=== PATIENT | male | born 1955 | race Caucasian/White ===

== ENCOUNTER 2016-10-21 12:45 | Day surgery (SDC) | payer OTHER ==
[~2016-10-21 12:45] MED LIST: ACETAMINOPHEN325 M1 PO; ALLEGRA ALLERG180 MG PO; ALLERCLEAR10 MG PO; ALLOPURINOL100 MG PO; AMOXICILLIN500 MG PO; ASPIR 8181 MG PO; ASPIR-LOW81 MG PO; CIALIS5 MG PO; CIPROFLOXACIN250 MG PO; FEXOFENADINE HC60 MG PO; FINASTERIDE5 MG PO; FLONASE ALLERG9.9 ML NS; HYDROCODON-ACE1 EA11 PO; MELOXICAM15 MG PO; METOPROLOL SUC200 MG PO; METOPROLOL TAR100 MG PO; METOPROLOL TART50 MG PO; METRONIDAZOLE250 MG PO; MIRALAX17 GM PO; MONTELUKAST SOD10 MG PO; MULTI VITAMIN1 EACH PO; OXYCODONE HCL5 MG PO; PANTOPRAZOLE SO40 MG PO; PEPTO-BISMOL262 MG PO; PROTONIX40 MG PO; SUCRALFATE1 GM/10 ML PO; TAMSULOSIN HCL0.4 MG PO; TESTOSTERO200 MG/1 M IM; TRAMADOL HCL50 MG; TRIAMTERENE-HC1 EAC3 PO; VENTOLIN HFA18 GM INH; VITAMIN D2000 UNI1 PO; XARELTO10 MG PO; ZYLOPRIM300 MG PO
[2016-10-21] MEDS ORDERED: ACETAMINOPHEN500 M1 PO (13:14)
--- NOTE | 2016-10-21 14:22 | NUR ---
10/21/16 1422 Kim Delgado REPORT FROM DARCY BANERJEE.
--- NOTE | 2016-10-26 13:10 | OR ---
[facility] [address], [place] [address] Signed DATE OF SERVICE: 10/21/2016 PREOPERATIVE DIAGNOSES: 1. Severe duodenal ulcer, June 2016. 2. Multiple medical problems. 3. History of hip replacement. POSTOPERATIVE DIAGNOSIS: No evidence of duodenal ulcer; possible mild antral gastritis. PROCEDURE: Esophagogastroduodenoscopy with biopsy. ANESTHESIA: Fentanyl 100 mcg, Versed 4 mg. 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 Clifton Fu. He has several medical problems from the past including urinary retention, managed ultimately by Dr. Cesar, urologist in [place] as well as hip replacement therapy by Dr. Harris. He was found on June 17, 2016, to have a sizable duodenal ulcer, which was maria e for severe Upper abdominal pain. He was treated with PPI medication pantoprazole as well As Carafate. Clinically, his symptoms of ulceration have resolved. Heis doing well following a total hip replacement. He ishaving no associated dysphagia. He is admitted at this time to undergo upper endoscopy to prove ulcer healing given the extent of the ulcer previously. He understands the risks of bleeding, infection, and perforation and wished to proceed. FINDINGS: The ulcer has healed. There is no evidence of remnant ulcer. Stomach had mild antral gastritis, but nothing significant. CLOtest was negative. The distal esophagus was reasonably normal. PROCEDURE IN DETAIL:The patient was brought to the endoscopy suite, given topical Hurricaine spray hypopharyngeal anesthesia, and placedin lateral decubitus position. He was given intravenous sedation to the point of slurred speech and nystagmus. Full cardiopulmonary monitoring was maintained. Preprocedure Ancef was given intravenously. A bite block was placed and an Olympus video upper endoscope passed in the hypopharynx. The vocal cords appeared normal. Scope was advanced to the esophagus, throughout its length it was normal. Scope was advanced to the stomach, which is inflated with air. Rugal folds were normal. There was some mild pre-pyloric antral gastritis, but no sign of ulceration or erosion. Scope was easily passed into the duodenum and the second and third portions were normal. The ampulla was identified. The scope was carefully withdrawn through the bulbar Electronically Signed By: CLIFTON GUERRERO MD 10/26/16 1310 PATIENT NAME: GERARDO BELLO OPERATIVE REPORT DATE OF : 53 PHYSICIAN: CLIFTON GUERRERO MD REPORT #: [id number] REPORT IS CONFIDENTIAL AND NOT TO BE RELEASED WITHOUT AUTHORIZATION [facility] [address], [place] [address] Signed duodenum, which was normal without sign of recurrent ulceration.The scope was withdrawn to the antrum, where biopsies were taken from both KVNG and pathologic testing. Retroflex view was undertaken showing reasonably intact flap valve. The scope was withdrawn to the distal esophagus. There was no evidence of Flynn's epithelium, stricture, or neoplasm. Biopsies were obtained. Careful withdrawal of scope showed no other findings of the esophagus. Hewas taken to the recovery room in good condition having suffered no complications. PLAN: Would continue the Protonix for the time being. We will see him back in 4 weeks or so. We will review pathology report at that time. Additional Consideration will be made for his left thyroid mass 4.5 cm in size with apparent involvement of the isthmus for which fine needle aspiration biopsy was not diagnostic. MD UMBERTO Almazan/Mj /[id number] cc: Clifton Madsen [facility] Electronically Signed By: CLIFTON GUERRERO MD 10/26/16 1310 PATIENT NAME: GERARDO BELLO DAIN OPERATIVE REPORT DATE OF : 53 PHYSICIAN: CLIFTON GUERRERO MD REPORT #: [id number] REPORT IS CONFIDENTIAL AND NOT TO BE RELEASED WITHOUT AUTHORIZATION
[2016-12-30] MEDS ORDERED: NEURONTIN100 MG PO (10:32)
[2016-12-30] MEDS ORDERED: ULTRAM50 MG PO (10:33)
[2016-12-30] MEDS ORDERED: OMEGA 3 1,0001 EACH PO (10:34)
[2016-12-30] MEDS ORDERED: CALCIUM500 M1 PO (10:35)
== END 2016-10-21 15:05 | disposition home or self-care (01) ==
LOC: DS 12:45 → OPS 12:45
PROVIDERS: Surgery
PROC: 0DB68ZX Excision of Stomach, Via Natural or Artificial Opening Endoscopic, Diagnostic (ICD-10-PCS; 2016-10-21)
PROC: 0DB38ZX Excision of Lower Esophagus, Via Natural or Artificial Opening Endoscopic, Diagnostic (ICD-10-PCS; principal; 2016-10-21 14:00)
DX: K29.50 Unspecified chronic gastritis without bleeding (principal); I10 Essential (primary) hypertension; K21.9 Gastro-esophageal reflux disease without esophagitis; K62.9 Disease of anus and rectum, unspecified; Z90.49 Acquired absence of other specified parts of digestive tract; Z98.890 Other specified postprocedural states
CPT/HCPCS: 99152; 99153; J0690; J2250; J3010; J7120

== ENCOUNTER 2017-01-06 05:40 | Observation (INO) | payer OTHER ==
[~2017-01-06] VITALS: Ht 188 cm; Wt 133.8 kg
[~2017-01-06 05:40] MED LIST changes: +ACETAMINOPHEN500 M1 PO; +CALCIUM500 M1 PO; +NEURONTIN100 MG PO; +OMEGA 3 1,0001 EACH PO; +ULTRAM50 MG PO
--- NOTE | 2017-01-06 10:44 | NUR ---
01/06/17 Roberto4 Sheryl Gillette 1029-PATIENT ARRIVED TO PACU ON 12L MASK O2 SAT 98% DRESSING CDI TO NECK. TIA DRAIN IN PLACE. SANGUINOUS DRAINAGE. PATIENT REACTIVE OPENS EYES AND FALLS BACK ASLEEP. SR.
--- NOTE | 2017-01-06 12:26 | NUR ---
PT ARRIVED TO ROOM AT 1205. 2L [address] O2 SATS 96%. AGUILAR DRAINING YELLOW URINE. D5LR @ 85 INFUSING. ICE WATER PROVIDED. TOLERATING WELL.
--- NOTE | 2017-01-06 13:14 | NUR ---
PT SITTING AT EDGE OF BED. 2L 02 VIA NC STILL IN PLACE. TOLERATING WATER WELL. ICE TEA AND VANILLA SHAKE ORDERED FOR PATIENT. REFILLED WATER CUP. VSS. PAIN WELL CONTROLLED.
--- NOTE | 2017-01-06 14:05 | NUR ---
ASSISTED WITH PUTTING SCDS BACK ON LEGS. ADJUSTED HOB. CALL BUTTON IN REACH NO OTHER NEEDS AT THIS TIME.
--- NOTE | 2017-01-06 16:00 | NUR ---
patient up ambulating hallway.
--- NOTE | 2017-01-06 16:34 | NUR ---
patient sitting up in chair watching TV. pain at a 4 and would like to wait until its at a 6-7. He states he will call when he is ready for pain medication. gave Patient crackers to eat. call button in reach. no other needs at this time.
--- NOTE | 2017-01-06 17:03 | NUR ---
2L 02 WHEN ASLEEP D/T SLEEP APNEA. ROOM AIR WHEN AWAKE. TIA DRAIN EMPTYING SEROUS DRAINAGE. STERISTRIPS, MEPILEX, OPSITE IN PLACE. EDGES OPEN, BUT MD AWARE. AGUILAR OUT THIS AFTERNOON. AMBULATING WELL. PERCOCET GIVEN X1. D5LR @ 85. NO SWELLING OR BREATHING ISSUES NOTED. TRANSVERSE INCISION ON NECK. INDEPENDENT TO AMBULATE.
--- NOTE | 2017-01-06 18:24 | NUR ---
PATIENT SITTING UP IN CHAIR. STATES HE FEELS BETTER AFTER DINNER AND PAIN MEDICATION. FRESH ICE GIVEN. NO OTHER NEEDS AT THIS TIME. CALL BUTTON IN REACH. IN ROOM.
--- NOTE | 2017-01-06 19:58 | NUR ---
SHIFT REPORT RECIEVED. PATIENT UP IN CHAIR READING NEWSPAPER. DENIES NEEDS AT THIS TIME. CALL LIGHT IN REACH.
--- NOTE | 2017-01-06 21:00 | NUR ---
PATIENT ASSESSMENT COMPLETED AND DOCUMENTED. EVENING MEDS GIVEN PER ORDER. PATIENT REQUESTED PRN PAIN MEDS, WHICH WERE GIVEN TO HIM. PATIENT RATES HIS PAIN AT 7/10 AT HIS INCISION SITE, AND STATES THAT HIS THROAT IS SORE. DRESSING IS INTACT EXCEPT THE LEFT SITE OF THE OB SITE WHICH HAS COME UNSECURE. MD IS AWARE. NO NEW DRAINAGE AT THE INCISION SITE. TIA IS DRAINING DARK RED DRAINAGE. PATIENT ON PULSE OX, 96% ON RA. HOB ELEVATED >[address] IVF INFUSING PER ORDER, SITE WNL. PATIENT DENIES ANY FURTHER NEEDS AT THIS TIME. CALL LIGHT IN REACH.
--- NOTE | 2017-01-07 00:15 | NUR ---
PATIENT REQUESTED PRN TYLENOL, WHICH WAS GIVEN TO HIM. PATIENT REPORTS PAIN FROM ARTHRITIS. STATES PAIN IN THROAT/NECK IS MINIMAL, RATED AT 3/10. PULSE OX O2 95% ON 1L NC. HOB >[address] IVF INFUSING, SITE WNL. NO FURTHER NEEDS AT THIS TIME. CALL LIGHT IN REACH.
--- NOTE | 2017-01-07 03:11 | NUR ---
PATIENT RESTING IN BED. DENIES PAIN AT THIS TIME. IVF INFUSING, SITE WNL. SCDS IN PLACE. PULSE OX O2 96% ON 1L NC. HOB ELEVATED >45 DEGREES. CALL LIGHT IN REACH.
--- NOTE | 2017-01-07 05:08 | NUR ---
PATIENT RESTED WELL THOUGHOUT THE SHIFT. POST OP PAIN CONTROLLED WITH PRN PAIN MEDS X1. PRN TYLENOL GIVEN X1 FOR ARTHRITIS PAIN. IVF INFUSING, SITE WNL. PULSE OX O2>94% ON 1L NC WHILE SLEEPING. DRESSING ON NECK IS CLEAN AND DRY, DRESSING LOSE ON LEFT SIDE. TIA DRAIN DRAINING DARK RED MODERATE AMOUNT. PATIENT SBA WITH AMBULATION. SCDS IN USE. HOB ELEVATED > 45 DEGREES. OUTPUT QS. PATIENT PASSING GAS.
--- NOTE | 2017-01-07 06:21 | NUR ---
PATIENT AWAKE. STATES THAT PAIN IS "NOT TOO BAD", RATED AT A 5/10. PATIENT REQUEST PRN TYLENOL AND TRAMADOL, WHICH WERE GIVEN. HOB ELEVATED >45 DEGREES. DRESSING HAS NO NEW DRAINAGE, DRESSING NO INTACT ON LEFT SIDE, MD AWARE. TIA DRAIN HAS MODERATE DARK RED DRAINAGE. LUNG SOUNDS CLEAR. BOWEL SOUNDS ACTIVE, PATIENT REPORTS PASSING GAS. SCDS IN PLACE. OUTPUT QS. PATIENT IN GOOD SPIRITS, DENIES NEEDS AT THIS TIME. CALL LIGHT IN REACH.
--- NOTE | 2017-01-07 07:40 | NUR ---
PATIENT SITTING UP IN CHAIR. STATES THAT HES ALREADY WASHED UP FOR THE DAY. FRESHENED LINENS. FRESH ICE WATER AND ICE TEA GIVEN. PICKED UP ROOM. NO OTHER NEEDS AT THIS TIME. CALL BUTTON IN REACH.
--- NOTE | 2017-01-07 07:44 | NUR ---
PT SITTING UP IN RECLINER. DRESSING TO ANTERIOR NECK CLEAN, DRY, LOOSE AT LEFT EDGE, NOC RN JEREMY STATED THAT THIS HAS NOT CHANGED, AND THAT DR. GUERRERO SAW DRESSING AND ORDERED NO CHANGES. PT REPORTED 4/10 PAIN, DENIED NEED FOR PAIN MEDICATION. STATED THAT HE ALREADY SHOWERED.
--- NOTE | 2017-01-07 09:22 | NUR ---
PT SITTING UP IN RECLINER. ATE 100% OF BREAKFAST. PT REPORTED THAT IT HURTS WHEN HE SWALLOWS, BUT REPORTS THAT THE PAIN TO HIS THROAT AND NECK IS NOT INTENSE, RATES PAIN 4/10, DENEIES NEED FOR PRN ANALGESIC. PROVIDED PT WITH ICED TEA AND ICE CREAM PER HIS REQUEST. DRESSING UNCHANGED, REMAINS CLEAN AND DRY, WITH LEFT EDGE LOOSE FROM SKIN. FELIX, PHARMACIST IN TO RECONCILE MEDICATIONS WITH PT.
[2017-01-07] MEDS ORDERED: EFUDEX40 GM TOP (09:28)
--- NOTE | 2017-01-07 09:29 | NUR ---
MED REC COMPLETE
--- NOTE | 2017-01-07 09:45 | NUR ---
PATIENT AMBULATING IN HALLWAY.
[2017-01-07] MEDS ORDERED: OXYCODON-ACETA1 EAC2 PO (09:49)
--- NOTE | 2017-01-07 10:39 | NUR ---
IV D/C'D WNL. DISCHARGE INSTRUCTIONS GIVEN TO PT. PT VERBALIZED UNDERSTANDING. FELIX, PHARMACIST IN TO SEE PT FOR NEW MEDICATION EDUCATION.
--- NOTE | 2017-02-13 07:48 | OR ---
[facility] [address], [place] [address] Signed DATE OF PROCEDURE: 01/06/17 PREOPERATIVE DIAGNOSES Symptomatic right thyroid mass 4.5 cm. Obesity. POSTOPERATIVE DIAGNOSES Symptomatic right thyroid mass 4.5 cm. Obesity. 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 PROCEDURE Right thyroid lobectomy with isthmusectomy. (prolonged, complicated, difficult). SURGEON: Clifton Guerrero MD. ANESTHESIA: General endotracheal, Clifton Foley CRNA. DRAIN: 7 mm Andrei. 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 He has been identified as having a palpable mass in the right thyroid lobe. Fine needle aspiration biopsy by me was nondiagnostic and an ultrasound-guided biopsy subsequently done showed follicular cells probably benign. The lesion takes up most of the right thyroid lobe. He has no hoarseness. He was generally asymptomatic, and he was offered right thyroid lobectomy for diagnosis, but declined and a plan for surveillance evaluation with ultrasound a n d physical exam was outlined. Subsequent to that, however, he started having symptoms suggestive of cervical dysphagia. Swallowing of rice and other food tends to "hang up" in the right hypopharynx and he attributes this to the thyroid itself. On that bas i s, he now wishes to undergo right thyroid lobectomy on the basis of his symptoms. He understands the risks of operation including, but not limited to, bleeding, infection, parathyroid loss, recurrent laryngeal nerve or external laryngeal nerve injury, and of course, need for additional treatment should malignancy be found after all. Understanding this, he wished to proceed. Our plan at present is right thyroid lobectomy with isthmusectomy and intraoperative frozen pathology shows malignancy and completion of left thyroid lobectomy. FINDINGS The operation was prolonged and difficult on the basis of broad attachments of the posterior aspect of the thyroid to the trachea as well as very bulky thyroid with Electronically Signed By: CLIFTON GUERRERO MD 02/13/17 0748 PATIENT NAME: GERARDO BELLO OPERATIVE REPORT DATE OF : 53 PHYSICIAN: CLIFTON GUERRERO MD REPORT #: [id number] REPORT IS CONFIDENTIAL AND NOT TO BE RELEASED WITHOUT AUTHORIZATION [facility] [address], [place] [address] Signed nodular changes extending into the tracheoesophageal groove. It is highly probable that this bulky thyroid was in fact causing cervical dysphagia. 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 Superior and inferior parathyroid glands were identified and preserved. The operation lasted 3 times longer than usual of right thyroid lobectomy. A drain was placed as well. DESCRIPTION OF PROCEDURE The patient was brought to the operating room, given a general endotracheal anesthetic. A Napier catheter was placed on the basis of his prior history of urinary retention. Intubation was not as simple though as not particularly difficult for the medical health researcher. A back support was used to assure safe intubation. The patient was placed in a naveed lounge position with a shoulder support and careful extension of the neck but not excessively so. The neck was prepared with a Chlorhexidine solution and draped sterilely. He received preoperative antibiotic Ancef and sequential compression device stockings were used. He had 2 dominant skin creases of the neck, the inferior one was deemed most appropriate for operation. This was marked with a pen, extended from the medial aspect to the sternocleidomastoid muscles. A #15 blade was used to make incision through the dermis. Electrocautery was used for hemostasis. Superior and inferior skin flaps were developed using blunt electrocautery dissection exposing well the strap muscles. Gelpi retractors were placed and the sternohyoid muscle elevated bilaterally and to the avascular plane between them divided with electrocautery. Dissection was carried superiorly and inferiorly, ultimately allowing for identification of the thyroid gland itself on the right side. The strap muscles were elevated and sharply dissected free from the underlying thyroid and retracted laterally. The thyroid was bulky and broad and nodule within the posteriorly quite a bit. The upper pole was blunt and surprisingly elongated. Using meticulous care, the superior gland vessels were individually ligated and divided, subsequently the inferior ones. The lateral attachments were divided though the bulk of the thyroid extending very far posteriorly and to some degree medially into the tracheoesophageal groove was challenging to mobilize. With all due care, sequential security of tethering vessels and connective tissue was ligated and divided. On those larger vessels, small clips were applied. Some parenchymal disruption of the nodule itself was noted. A portion of that nodule was sent for pathology to assess for malignancy. With further care, ultimately the thyroid could be more fully mobilized to the midline maintaining the posterior elements with the deep soft tissue. The superior and inferior parathyroid glands were identified. Clips were applied to multiple branches of vessels in the posterior aspect of the thyroid so as to minimize cautery and the awkwardness of 4-0 silk ties, though multiple such ties were placed in fact. Ultimately, the posterior capsular thyroid could be from the trachea. A rather broad ligament of Oswald was noted. This was freed sharply and thyroid reflected more to the midline, maintaining the avascular plane Electronically Signed By: CLIFTON GUERRERO MD 02/13/17 0748 PATIENT NAME: YESKE,GERARDO GAUTAM OPERATIVE REPORT DATE OF : 53 PHYSICIAN: CLIFTON GUERRERO MD REPORT #: [id number] REPORT IS CONFIDENTIAL AND NOT TO BE RELEASED WITHOUT AUTHORIZATION [facility] [address], [place] [address] Signed in the pretracheal space. The isthmus connecting the right lobe to the left was rather s h ort, but was secured with a hemostat and parenchymal division undertaken with electrocautery. Photographs were taken of the specimen. Irrigation was undertaken in the soft tissue in the paratracheal space and the area was packed with some gauze. Frozen pathology of the previously sent thyroid nodule portion as well as the thyroid bulk itself was undertaken by Dr. Genesis Sandy. This showed a benign follicular lesion, so far as could be told, though final pathology obviously is pending. Irrigation was under taken further in the tracheoesophageal groove area mindful about position of the right recurrent laryngeal nerve. Small clips were applied to the areas of bleeding. Thrombin-soaked Gelfoam was applied to this area as well as well as some Kirti. Though he did not have any sign of ongoing bleeding, a drain was deemed most appropriate given the bulk of his neck, the extent of operation, and so on. This was placed through the midportion of the incision and tucked into the right peritracheal space. The strap muscles were reapproximated at the midline using interrupted 2-0 Vicryl suture. The platysmal layer was similarly reapproximated and the skin closed with interrupted 4-0 Vicryl. Steri-Strips were applied to the wound. Drains attached to the skin with nylon suture and attached to bulb suction. Frozen pathology complete, reports continue to show benign follicular lesion. A Mepilex silver sponge dressing and an OpSite was applied to the wound. The patient was carefully extubated and transferred to recovery room in good condition. The operation was prolonged, complicated, and difficult, lasting 3 times longer than usual, extending from approximately 7:30 a.m. to 10:30 a.m. MD UMBERTO Almazan/Mj /[id number] cc: Chuck Fu MD Electronically Signed By: CLIFTON GUERRERO MD 02/13/17 0748 PATIENT NAME: GERARDO BELLO OPERATIVE REPORT DATE OF : 53 PHYSICIAN: CLIFTON GUERRERO MD REPORT #: [id number] REPORT IS CONFIDENTIAL AND NOT TO BE RELEASED WITHOUT AUTHORIZATION
== END 2017-01-07 12:05 | disposition home or self-care (01) ==
LOC: DS 05:40 → MS 11:40
PROVIDERS: ADMIT Surgery
PROC: 0GTH0ZZ Resection of Right Thyroid Gland Lobe, Open Approach (ICD-10-PCS; principal; 2017-01-06 06:45)
DX: E04.2 Nontoxic multinodular goiter (principal); E66.9 Obesity, unspecified; G47.33 Obstructive sleep apnea (adult) (pediatric); I10 Essential (primary) hypertension; Z79.01 Long term (current) use of anticoagulants; Z79.891 Long term (current) use of opiate analgesic; Z68.37 Body mass index [BMI] 37.0-37.9, adult; Z79.899 Other long term (current) drug therapy
CPT/HCPCS: 00320; 96360; 96361; G0378; J0330; J0690; J1100; J1720; J1885; J2250; J2405; J2704; J2710; J2765; J3010; J3590; J7120

== ENCOUNTER 2021-01-25 06:30 | Day surgery (SDC) | payer MEDICARE, BC ==
[~2021-01-25] VITALS: Ht 188 cm; Wt 150.9 kg
[~2021-01-25 06:30] MED LIST changes: +CYMBALTA60 MG PO; +EFUDEX40 GM TOP; +LISINOPRIL20 MG PO; +OXYCODON-ACETA1 EAC2 PO
[2021-01-25] MEDS ORDERED: CLARITIN10 M2 PO (06:58)
[2021-01-25] MEDS ORDERED: LEVOTHYROXINE112 MC1 PO (06:59)
[2021-01-25] MEDS ORDERED: HYDROCODON-ACE1 EA10 PO (08:55)
--- NOTE | 2021-01-25 08:58 | NUR ---
01/25/21 0858 Kika,Lamar 9009 PT ARRIVED TO PACU ON RA, PT WAKES AND REPORTS PAIN 04/22. VSS. PT DNEIES NAUSEA.
--- NOTE | 2021-01-25 10:05 | NUR ---
PT ALERT, ORIENTED AND PREPARED FOR TODAY. HE JOKED THAT IF IT WAS HIS OTHER HAND HE MIGHT TRY AND DO IT HIMSELF! ALL QUESTIONS ASKED ANSWERED, PT ASKED FOR PRAYER.CONNECTED WITH HIS EAMON, WAITING TO TAKE PT HOME AFTER DC GAVE BLESSING AND COMFORT, WILL FOLLOW NEEDED
--- NOTE | 2021-01-28 08:26 | OR ---
[facility] [address] [employer] [place], [place] [address] Signed DATE OF OPERATION: 01/25/2021 SURGEON: Amarjit Harris MD PREOPERATIVE DIAGNOSES: 1. Carpal tunnel syndrome, right. 2. Skin lesion, right thenar eminence. POSTOPERATIVE DIAGNOSES: 1. Carpal tunnel syndrome, right. 2. Skin lesion, right thenar eminence. PROCEDURES PERFORMED: 1. Right carpal tunnel release. 2. Excision of skin lesion, 1 cm. CORPORATE SPECIALIST: None. ANESTHESIA: [place] block. TOURNIQUET TIME: 21 minutes. SPECIMEN: Skin lesion was sent to pathology. BRIEF HISTORY: Gerardo is a 65-year-old gentleman with progressive worsening of numbness and tingling in his hand. He also had a large bump on the thenar eminence. He wished to have removed. Risks, benefits, and alternatives were discussed at length. He understood and wished to proceed. DESCRIPTION OF PROCEDURE: Once consent was obtained, he was taken to the operating room. He was left on day surgery bed. After adequate Livia block was established, the hand was prepped and draped in a standard sterile fashion. The carpal tunnel was approached first. A 1.5 cm incision was made in the distal wrist crease, carried through the skin and subcutaneous tissue. All bleeders were cauterized with bipolar as we went. The palmaris longus was Electronically Signed By: AMARJIT HARRIS MD 01/28/21 0826 PATIENT NAME: GERARDO BELLO OPERATIVE REPORT DATE OF : 53 REPORT #: [id number] PHYSICIAN: AMARJIT HARRIS MD PCP: DORIS MERRILL MD REPORT IS CONFIDENTIAL AND NOT TO BE RELEASED WITHOUT AUTHORIZATION [facility] [address] [place], [place] [address] Signed identified, retracted and protected. Under loupe magnification, the transverse carpal ligament was identified and dissected free of overlying soft tissue proximally and distally. It was then released proximally a centimeter and distally to the distal extent of the ligament. This was palpated using a [place] and found to be completely released. This was done under direct loupe magnification and the nerve was noted to be completely released. The wound was copiously irrigated with normal saline. A 1 cm ellipse was made around the skin lesion on the thenar eminence. This was carried through the skin and down into the subcutaneous tissue. The lesion was in the skin only did not extend into the fat. It was excised and passed off the table, placed in formalin and sent to pathology. This was also copiously irrigated. Both wounds were closed independently using 3-0 nylon. Wounds were infiltrated with about 7 mL of 0.25% plain Marcaine and dressed with Adaptic, ABD and gauze. He was also had an Suman wrap placed around it. He was awakened and taken to the recovery room in satisfactory condition. All sponge, needle, and instrument counts were correct. Amarjit Harris MD BA/MODL /[id number] Copies: ~ Electronically Signed By: AMARJIT HARRIS MD 01/28/21 0826 PATIENT NAME: GERARDO BELLO OPERATIVE REPORT DATE OF : 53 REPORT #: [id number] PHYSICIAN: AMARJIT HARRIS MD PCP: DORIS MERRILL MD REPORT IS CONFIDENTIAL AND NOT TO BE RELEASED WITHOUT AUTHORIZATION
== END 2021-01-25 09:45 | disposition home or self-care (01) ==
LOC: DS 06:30
PROVIDERS: ATTEND Specialist
PROC: 0HBFXZZ Excision of Right Hand Skin, External Approach (ICD-10-PCS; 2021-01-25)
PROC: 01N50ZZ Release Median Nerve, Open Approach (ICD-10-PCS; principal; 2021-01-25 08:15)
DX: G56.01 Carpal tunnel syndrome, right upper limb (principal); D22.61 Melanocytic nevi of right upper limb, including shoulder; G47.30 Sleep apnea, unspecified; I10 Essential (primary) hypertension; E89.0 Postprocedural hypothyroidism; R09.82 Postnasal drip; R05.9 Cough, unspecified; U09.9 Post COVID-19 condition, unspecified; Z79.82 Long term (current) use of aspirin; Z96.643 Presence of artificial hip joint, bilateral; Z91.040 Latex allergy status
CPT/HCPCS: 01810; 88305; J0690; J2001; J2250; J2405; J2704

== ENCOUNTER 2023-03-14 12:29 | Emergency (ER) | payer MEDICARE, BC ==
[~2023-03-14] VITALS: Ht 188 cm; Wt 137.4 kg
[~2023-03-14 12:29] MED LIST changes: +CLARITIN10 M2 PO; +HYDROCODON-ACE1 EA10 PO; +LEVOTHYROXINE112 MC1 PO
[2023-03-14] MEDS ORDERED: LEVOTHYROXINE112 MCG PO (12:54)
[2023-03-14] MEDS ORDERED: PREDNISONE1 MG PO (12:54)
[2023-03-14] MEDS ORDERED: PANTOPRAZOLE SO40 MG PO (12:54)
[2023-03-14] MEDS ORDERED: ROSUVASTATIN CA10 MG PO (12:55)
[2023-03-14 12:58] LABS: BASOPHILS 0.5 % (0-2); EOSINOPHILS 1.8 % (0-6); HEMATOCRIT 57.1 % (35.0-50.0); HEMOGLOBIN 19.1 g/dL (12.0-18.0); LYMPHOCYTES 27.5 % (24-44); MCH 32.5 (27-36); MCHC 33.5 g/dl (30-36); MCV 97.1 fl (81-99); MONOCYTES 12.4 % (0-12); NEUTROPHILS 57.8 % (39-80); PLATELET COUNT 157 K/uL (140-440); RBC 5.88 M/ul (4.3-5.7); RDW 15.3 (10.5-15.0)
[2023-03-14] MEDS ORDERED: DULOXETINE HCL60 MG PO (13:05)
[2023-03-14] MEDS ORDERED: LOSARTAN-HCTZ1 EAC1 PO (13:05)
[2023-03-14] MEDS ORDERED: METOPROLOL SUCC50 MG PO (13:06)
[2023-03-14 13:19] LABS: ALBUMIN 3.8 g/dL (3.4-5.0); ANION GAP 12.9 (7-21); BILIRUBIN, TOTAL 0.9 ng/dL (0.2-1.0); BUN/CREATININE RATIO 14.59 (6.0-28.6); CALCIUM 9.4 mg/dL (8.5-10.1); CREATININE, SERUM 1.85 mg/dL (0.70-1.30); POTASSIUM 3.9 mmol/L (3.5-5.1); PROTEIN, TOTAL 7.6 g/dL (6.4-8.2)
[2023-03-14 13:25] LABS: PARTIAL THROMBOPLASTIN TIME 28.4 Sec (22.9-41.3)
[2023-03-14 13:26] LABS: INR 0.9 (0.80-1.30); PROTIME 11.7 Sec (11.2-14.2)
[2023-03-14 14:39] VITALS: BP 151/84
--- NOTE | 2023-03-14 22:22 | EKG ---
[facility] [address] [place] [address] Signed Sinus tachycardia with premature atrial complexes Septal infarct (cited on or before 16-JUN-2016) Inferior injury pattern ACUTE DE / STEMI Consider right ventricular involvement in acute inferior infarct Abnormal ECG When compared with ECG of 22-JAN-2021 15:32, premature atrial complexes are now present ST elevation now present in Inferior leads ST now depressed in Lateral leads Confirmed by Iggy Tobias MD () on 03/14/2023 10:22:42 PM Electronically Signed By: IGGY TOBIAS MD 03/14/232221 PATIENT NAME: GERARDO BELLO Electrocardiogram DATE OF : 53 PHYSICIAN: IGGY TOBIAS MD REPORT #: [id number] REPORT IS CONFIDENTIAL AND NOT TO BE RELEASED WITHOUT AUTHORIZATION
--- NOTE | 2023-03-14 22:24 | EKG ---
[facility] [address] [facility] [place] [address] Signed Sinus rhythm with premature atrial complexes Septal infarct (cited on or before 16-JUN-2016) Abnormal ECG When compared with ECG of 14-MAR-2023 12:34, ST no longer elevated in Inferior leads ST no longer depressed in Lateral leads Nonspecific T wave abnormality now evident in Inferior leads Confirmed by Iggy Tobias MD () on 03/14/2023 10:24:03 PM Electronically Signed By: IGGY TOBIAS MD 03/14/232223 PATIENT NAME: GERARDO BELLO Electrocardiogram DATE OF : 53 PHYSICIAN: IGGY TOBIAS MD REPORT #: [id number] REPORT IS CONFIDENTIAL AND NOT TO BE RELEASED WITHOUT AUTHORIZATION
== END 2023-03-14 14:32 | disposition short-term general hospital (02) ==
LOC: ED 12:29
PROVIDERS: Emergency Medicine
DX: I21.4 Non-ST elevation (NSTEMI) myocardial infarction (principal); I10 Essential (primary) hypertension; Z20.822 Contact with and (suspected) exposure to COVID-19; Z79.899 Other long term (current) drug therapy; Z79.82 Long term (current) use of aspirin
CPT/HCPCS: 36415; 71045; 80053; 84484; 85025; 85610; 85730; 93005; 93010; A9270; C9803; J1644; J2270; U0002

== ENCOUNTER 2023-09-30 15:07 | Emergency (ER) | payer MEDICARE, BC ==
[~2023-09-30] VITALS: Ht 188 cm; Wt 149.0 kg
[~2023-09-30 15:07] MED LIST changes: +DULOXETINE HCL60 MG PO; +LEVOTHYROXINE112 MCG PO; +LOSARTAN-HCTZ1 EAC1 PO; +METOPROLOL SUCC50 MG PO; +PREDNISONE1 MG PO; +ROSUVASTATIN CA10 MG PO
[2023-09-30] MEDS ORDERED: CLOPIDOGREL75 MG PO (15:32)
[2023-09-30] MEDS ORDERED: NITROGLYCERIN0.4 MG SL (15:32)
[2023-09-30] MEDS ORDERED: DILTIAZEM 24HR360 MG PO (15:32)
[2023-09-30] MEDS ORDERED: SPIRONOLACTONE25 MG PO (15:32)
[2023-09-30] MEDS ORDERED: SODIUM CHLORIDE 0.9% 1,000 ML IV ONE (16:15)
[2023-09-30] MEDS ORDERED: LIDOCAINE 2% VISCOUS 6 ML SYR TOP ONE (16:15)
[2023-09-30 16:38] LABS: MCH 32.4 (27-36)
[2023-09-30 16:41] LABS: BASOPHILS 0.6 % (0-2); EOSINOPHILS 1.3 % (0-6); HEMATOCRIT 54.4 % (35.0-50.0); LYMPHOCYTES 22.2 % (24-44); MCV 98.2 fl (81-99); MONOCYTES 11.2 % (0-12); NEUTROPHILS 64.7 % (39-80); PLATELET COUNT 168 K/uL (140-440); RBC 5.54 M/ul (4.3-5.7); RDW 15.1 (10.5-15.0)
[2023-09-30 17:01] LABS: ALBUMIN 3.5 g/dL (3.4-5.0); ANION GAP 14.9 (7-21); BILIRUBIN, TOTAL 1.1 ng/dL (0.2-1.0); BUN/CREATININE RATIO 15.34 (6.0-28.6); CREATININE, SERUM 1.89 mg/dL (0.70-1.30); POTASSIUM 3.9 mmol/L (3.5-5.1)
[2023-09-30 18:39] LABS: BILIRUBIN, URINE NEGATIVE (negative); BLOOD/HGB, URINE LARGE (Negative); KETONE, URINE TRACE (Negative); LEUK ESTERASE, URINE SMALL (negative); NITRITE, URINE POSITIVE (negative)
[2023-09-30 18:48] LABS: BACTERIA, URINE 1+ /hpf (negative); CASTS, URINE NONE SEEN \\lpf; CRYSTALS, URINE NONE SEEN (0-1+); EPITHELIAL CELLS, URINE SQUAMOUS 1+ /lpf (0-1+); RED BLOOD CELLS, URINE >50 /hpf (0-5)
[2023-09-30 18:49] LABS: COLLECTION TYPE, URINE CLEAN CATCH; REFLEX CULTURE, URINE Yes (No)
[2023-09-30] MEDS ORDERED: BACTRIM DS TAB1 EACH PO (19:49)
[2023-09-30] MEDS ORDERED: TRIMETHOPRIM/SULFAMETHOXAZOLE 1 EA TAB PO ONE ×2 (20:00→22:30)
[2023-10-01 01:35] VITALS: BP 165/78
[2023-10-01] MEDS ORDERED: SULFAMETHOXAZO1 EAC1 PO (11:50)
== END 2023-10-01 01:48 | disposition home or self-care (01) ==
LOC: ED 15:07
PROVIDERS: Emergency Medicine
DX: R31.9 Hematuria, unspecified (principal); I10 Essential (primary) hypertension; Z88.5 Allergy status to narcotic agent; Z79.02 Long term (current) use of antithrombotics/antiplatelets; Z79.890 Hormone replacement therapy; Z79.899 Other long term (current) drug therapy
CPT/HCPCS: 36415; 80053; 81001; 85025; A9270; J7030

== ENCOUNTER 2023-10-01 11:35 | Emergency (ER) | payer MEDICARE, BC ==
[~2023-10-01] VITALS: Ht 188 cm; Wt 147.9 kg
[~2023-10-01 11:35] MED LIST changes: +BACTRIM DS TAB1 EACH PO; +CLOPIDOGREL75 MG PO; +DILTIAZEM 24HR360 MG PO; +NITROGLYCERIN0.4 MG SL; +SPIRONOLACTONE25 MG PO
--- OUTSIDE RECORDS SUMMARY | 2023-10-01 11:36 | XMS ---
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 Rene has no Care Guidelines for this patient. Hillary VISIT COUNT (12 MO.) [address] [facility] TOTAL 3 NOTE: Visits indicate total known visits. ED/C VISIT TRACKING (12 MO.) 10/01/2023 11:35 [facility] TYPE: Emergency COMPLAINT: - CATH ISSUES 09/30/2023 15:08 [facility] TYPE: Emergency COMPLAINT: - BLOOD URINE 03/14/2023 12:29 [facility] TYPE: Emergency COMPLAINT: - CHEST PAIN DIAGNOSES: - Chest pain, unspecified - Contact with and (suspected) exposure to COVID-19 - Essential (primary) hypertension - supervisor intermediates (current) use of aspirin - Non-ST elevation (NSTEMI) myocardial infarction - Other residential (current) drug therapy INPATIENT VISIT TRACKING (12 MO.) 03/14/2023 15:48 [facility] ([facility]) TYPE: Intensive Care DIAGNOSES: - Acute kidney failure, unspecified - Chronic kidney disease, unspecified - Essential (primary) hypertension - Gastro-esophageal reflux disease without esophagitis - Gout, unspecified - Hypothyroidism, unspecified - Non-ST elevation (NSTEMI) myocardial infarction - Obstructive sleep apnea (adult) (pediatric) - Polymyalgia rheumatica - Unspecified asthma, uncomplicated - unstable angina [email or web address]
[2023-10-01] MEDS ORDERED: SULFAMETHOXAZO1 EAC1 PO (11:50)
[2023-10-01] MEDS ORDERED: SODIUM CHLORIDE 0.9% 1,000 ML IV ONE (12:15)
[2023-10-01] MEDS ORDERED: LIDOCAINE 2% VISCOUS 6 ML SYR TOP ONE ×2 (12:45→13:00)
[2023-10-01 15:19] LABS: BASOPHILS 0.3 % (0-2); EOSINOPHILS 1.1 % (0-6); HEMATOCRIT 54.7 % (35.0-50.0); HEMOGLOBIN 18.3 g/dL (12.0-18.0); LYMPHOCYTES 18.5 % (24-44); MCH 32.5 (27-36); MCHC 33.5 g/dl (30-36); MCV 97.3 fl (81-99); MONOCYTES 12.2 % (0-12); NEUTROPHILS 67.9 % (39-80); PLATELET COUNT 174 K/uL (140-440); RBC 5.63 M/ul (4.3-5.7); RDW 15.3 (10.5-15.0)
[2023-10-01 16:01] VITALS: BP 137/69
== END 2023-10-01 16:01 | disposition short-term general hospital (02) ==
LOC: ED 11:35
PROVIDERS: Emergency Medicine
DX: T83.098A Other mechanical complication of other urinary catheter, initial encounter (principal); R31.9 Hematuria, unspecified; Z79.899 Other long term (current) drug therapy; Z79.51 Long term (current) use of inhaled steroids; Z79.82 Long term (current) use of aspirin; Z88.8 Allergy status to other drugs, medicaments and biological substances; I10 Essential (primary) hypertension
CPT/HCPCS: 36415; 85025